=== PATIENT | female | born 1990 | race Caucasian/White ===

== ENCOUNTER 2020-07-14 22:04 | Emergency (ER) | payer MEDICAID ==
[~2020-07-14] VITALS: Ht 162.6 cm; Wt 100.0 kg
[2020-07-14 22:06] VITALS: BP 140/75
== END 2020-07-14 23:51 | disposition home or self-care (01) ==
LOC: ER 22:04
DX: R53.1 Weakness (principal); J45.909 Unspecified asthma, uncomplicated; Z98.890 Other specified postprocedural states
CPT/HCPCS: 82962; 93005; 99283